=== PATIENT | male | born 1965 | race Caucasian/White ===

== ENCOUNTER 2025-06-03 06:16 | Emergency (ER) | payer SELFPAY ==
[2025-06-03 06:18] VITALS: BP 167/92
[2025-06-03 07:28] VITALS: BP 164/92
[2025-06-03 07:43] LABS: Hematocrit 41.8 % (39.0-52.0); Hemoglobin 14.3 g/dL (13.0-18.0); Mean Corp Hgb Conc. 34.2 g/dL (33.0-37.0); Mean Corpuscular Volume 84.8 fL (80.0-94.0); Nucleated Red Blood Cells % 0 % (-); Platelet Count 194 10^3/uL (130-400); Red Cell Dist. Width 12.8 % (11.5-14.5)
[2025-06-03 07:54] LABS: Blood Urea Nitrogen 20 mg/dl (9-20); Calcium 9.3 mg/dl (8.4-10.2); Carbon Dioxide 25 mmol/L (22-30); Chloride 109 mmol/L (98-107); Glucose 90 mg/dl (70-99); Potassium 3.9 mmol/L (3.5-5.1); Sodium 140 mmol/L (135-145); eGFR > 60.00
[2025-06-03 08:00] VITALS: BP 133/86
--- NOTE | 2025-06-03 08:12 | ED.GENMED ---
History of Present Illness
General
Chief Complaint: Blood Pressure Problem
Source: patient
Exam Limitations: none
Time Seen by Provider: 06/03/25 07:00
History of Present Illness
History of Present Illness:
59-year-old male recently received a blood pressure cuff as a gift. His blood pressures have been running 130s over 80s. He has been having ongoing ringing in his ear for a year. He checked his blood pressure in the last 24 hours and blood
pressure was elevated up to 178/90. No chest pain shortness of breath. No neurologic symptoms. No specific complaints at this time
Past History
Past History
ED Past Medical History: None
ED Past Surgical History: Other ([place] teeth)
Review of Systems
Review of Systems
All Other Systems: Not applicable
Respiratory: Reports no symptoms
Cardiac: Reports no symptoms
Neurological: Reports no symptoms
Phy Exam
Physical Exam
Physical Exam:
GENERAL: Alert and oriented in no apparent distress
EYE: Orbits normal.
NECK: Supple, no significant adenopathy. TMs clear
ENT: Pharynx without erythema
CARDIAC: Regular rate and rhythm without any obvious murmurs.
LUNGS: Clear breath sounds,normal
ABDOMEN: Soft, without focal tenderness or distention
NEUROLOGICAL: Alert and oriented , grossly non-focal
SKIN: Warm and dry, no rash or lesion, no discoloration, skin intact.
MUSCULOSKELETAL: No edema,no deformity.Good color
PSYCH: Normal and appropriate interaction.
Course
Orders/Labs/Results
Orders:
Orders
06/03/25 07:15
Electrocardiogram (*1) Stat
Reason for Study: Other
Other Reason for Exam: chest pain
Cardiac Monitoring- Treatment ONCE
EKG- Treatment ONCE
06/03/25 07:29
Basic Metabolic Panel Urgent
Complete Blood Count/With Diff Urgent
TSH Reflex To Free T4 Urgent
Abnormal Lab Results
06/03/25
07:29
WBC 4.3 L 10^3/uL
(4.8-10.8)
Monocytes % 9.4 H %
(1.7-9.3)
Chloride 109 H mmol/L
(98-107)
06/03/25 07:29
06/03/25 07:29
Vital Signs
Initial and Last Documented VS:
Initial Vital Signs
Temp Pulse Resp BP Pulse Ox
98.3 F 67 16 167/92 98
06/03/25 06:18 06/03/25 06:18 06/03/25 06:18 06/03/25 06:18 06/03/25 06:18
Last Documented Vital Signs
Temp Pulse Resp BP Pulse Ox
98.3 F 61 17 133/86 96
06/03/25 06:18 06/03/25 08:00 06/03/25 08:00 06/03/25 08:00 06/03/25 08:15
MDM/Problems Addressed
Differential Diagnosis Includes:
Patient asymptomatic with mild blood pressure elevation. Tenderness is been ongoing for a year. Labs stable. Renal function normal. EKG normal. Blood pressure improved. Stable for discharge.
*Pulse Oximetry
SaO2: 96
Oxygen Mode of Delivery: Room air
Patient hypoxic: no
*EKG
Interpreted by ED Provider?: Yes
Interpretation: normal
Comparison EKG: no comparison EKG present
Heart Rate: 67
Rate: normal
Rhythm: sinus
[place]: normal axis
Interval: normal interval
QRS Pattern: normal QRS
Ischemia: no ischemia
*Nurse Charge Rn Interpretation
Rate: normal
Interpretation: normal
Heart Rate: 70
Rhythm: sinus
*Critical Care Note
Total Time (30-74mins, 75-104mins- exclusive of procedures): Not Applicable
Update Note
Update Note:
Patient is remained medically stable and nontoxic. Workup unremarkable. Blood pressure 133/86. Discharged to follow-up
ED Attending Note
-
Portions of this chart may have been created with voice recognition software.� Occasional wrong word or��sound alike� substitutions may have occurred due to the inherent limitations of voice recognition software.
Discharge Plan
Departure
Patient Disposition: Home (Routine Discharge)
Date of Disposition: 06/03/25
Time of Disposition: 08:14
Patient with high blood pressure during this ER visit?: Yes
Discharge Problem:
Hypertension, Ongoing tinnitus
Instructions: Tinnitus (ringing in the ears), BLOOD PRESSURE
Referrals:
[facility] [Provider Group] - Next open appointment
Clive Hall MD [Active, Otology]
NONE,* [Family Provider, Internal Medicine]
Interventions
Interventions:
*Risk Screen - Suicide Last Done: 06/03/25 06:18
*General Assessment Last Done: 06/03/25 08:00
*Neglect/Abuse Screening Last Done: 06/03/25 08:00
ED- Cardiac Assessment Last Done: 06/03/25 08:00
ED- Neurological Assessment Last Done: 06/03/25 08:00
ED- Pulmonary Assessment Last Done: 06/03/25 08:00
Discharge Date and Time
Print Language: MAORI
== END 2025-06-03 08:27 | disposition home or self-care (01) ==
LOC: EMR 06:16
PROVIDERS: EMERGENCY PHYSICIAN Emergency Medicine
DX: I10 Essential (primary) hypertension (principal); H93.19 Tinnitus, unspecified ear
CPT/HCPCS: 99284; 80048; 84443; 85025; 93005